=== PATIENT | female | born 1970 | race Caucasian/White ===

== ENCOUNTER 2016-03-29 10:37 | Day surgery (SDC) | payer OTHER ==
[~2016-03-29 10:37] MED LIST: LR 1,000 ML IV ONE; SILVER NITRATE APPLICATOR 1 APPL TP ONE
[2016-03-29] MEDS ORDERED: LIDOCAINE 1% 5 ML SDV ONE (11:20)
[2016-03-29 11:22] LABS: COLOR YELLOW; LEUKOCYTE ESTERASE,URINE NEGATIVE (NEGATIVE); NITRITE,URINE NEGATIVE (NEGATIVE)
[2016-03-29] MEDS ORDERED: PROPOFOL 200 MG/20 ML VIAL ONE ×2 (11:27)
[2016-03-29] MEDS ORDERED: fentaNYL 100 MCG/2 ML INJ ONE (11:28)
[2016-03-29] MEDS ORDERED: LIDOCAINE 2% 100 MG/5 ML SYR IVP ONE (11:30)
[2016-03-29] MEDS ORDERED: LIDOCAINE 1% 5 ML SDV ID PRN (11:53)
[2016-03-29] MEDS ORDERED: LR 1,000 ML IV ONE (11:53)
[2016-03-29] MEDS ORDERED: VASOPRESSIN 20 UNIT/ML VIAL ONE (12:05)
[2016-03-29] MEDS ORDERED: LIDOCAINE 1% 30 ML SDV ONE ×2 (12:06→12:07)
[2016-03-29] MEDS ORDERED: MIDAZOLAM 2 MG/2 ML VIAL ONE (12:16)
[2016-03-29] MEDS ORDERED: LIDO/EPI 1% **Not for Epidural 20 ML MDV ONE (12:41)
[2016-03-29] MEDS ORDERED: DEXAMETHASONE 4 MG/ML VIAL ONE (12:54)
[2016-03-29] MEDS ORDERED: ONDANSETRON 4 MG/2 ML VIAL ONE (12:54)
[2016-03-29] MEDS ORDERED: KETOROLAC 30 MG/1 ML SDV ONE (12:56)
--- NOTE | 2016-03-29 20:03 | GOP ---
[f rep st] OPERATIVE REPORT DATE OF OPERATION: 03/29/2016 SURGEON: Michelle Cummings MD STORAGE SPECIALIST: None. ANESTHESIA: LMA. PREOPERATIVE DIAGNOSIS: 1. Submucosal fibroid. 2. Pelvic pain. POSTOPERATIVE DIAGNOSIS: Endometrial polyp. PROCEDURE PERFORMED: 1. Hysteroscopy. 2. Polypectomy. FINDINGS: Endometrial polyps. No submucosal fibroid. SPECIMENS: Endometrial polyp. ESTIMATED BLOOD LOSS: Less than 10 mL. INDICATIONS: Marta is a 46-year-old female who was having pelvic pain, and shown to have a pelvic ultrasound which showed a potential submucosal fibroid abutting into the endometrium. Recommend proceeding with attempted hysteroscopic myomectomy to see if her pain would improve. DESCRIPTION OF PROCEDURE: The patient was taken to the operating room where she was prepped and draped in normal sterile fashion in the high dorsal lithotomy position. The patient emptied her bladder prior to the procedure. A surgical time-out was performed, verifying the patient's name, date of , planned procedure, and site. A bivalve speculum was placed in the patient's vagina. The anterior aspect of the cervix was grasped with a single-tooth tenaculum. The patient received a paracervical block of 1% lidocaine with epinephrine of 10 mL. Her cervix is dilated to 6.5 mm. The hysteroscope was placed into the uterine cavity. Uterine cavity visualization revealed a small endometrial polyp that was removed with a Truclear blade which was then removed. The hysteroscope was then removed. The patient did have normal fallopian tubal ostia and no evidence of submucosal fibroid. The bivalve speculum was removed. Hemostasis was obtained with silver nitrate. All counts were correct x2. The fluid deficit 110 mL. FLUID DEFICIT: 110 mL. COMPLICATIONS: None. DISPOSITION: Stable to the recovery room. /[id number]/MODL MTDD
== END 2016-03-29 15:15 | disposition home or self-care (01) ==
LOC: FSGY 10:37
PROVIDERS: ATTEND Obstetrics & Gynecology
PROC: 0UB98ZZ Excision of Uterus, Via Natural or Artificial Opening Endoscopic (ICD-10-PCS; principal; 2016-03-29 12:15)
DX: N92.0 Excessive and frequent menstruation with regular cycle (principal); N84.0 Polyp of corpus uteri
CPT/HCPCS: 58558; C1782; J1100; J1885; J2001; J2250; J2405; J2704; J3010

== ENCOUNTER → 2016-08-29 | Outpatient (CLI) | payer OTHER | LOC: FIMAGING 14:32 | PROVIDERS: ATTEND Obstetrics & Gynecology | DX: Z12.31 Encounter for screening mammogram for malignant neoplasm of breast (principal); Z80.3 Family history of malignant neoplasm of breast | CPT/HCPCS: G0202 ==

== ENCOUNTER 2016-09-10 06:00 | Observation (INO) | payer OTHER ==
--- NOTE | 2016-09-09 23:55 | GHP ---
[f rep st] PREOP HISTORY AND PHYSICAL DATE OF ADMISSION: 09/10/2016 CHIEF COMPLAINT: Right-sided pelvic pain and heavy menstrual bleeding. HISTORY OF PRESENT ILLNESS: The patient is a 46-year-old female who has been having persistent right-sided lower quadrant pain for the past several months and heavy vaginal bleeding when she is not taking control pills. The patient desires definitive surgical management, no longer wants to take oral contraception, and she is having significant pelvic pain despite being on the oral contraceptives and would like to proceed with a hysterectomy. The patient has had a pelvic ultrasound, which revealed a normally sized uterus. She has 2 fibroids approximately 1-2 cm in size and has bilateral ovarian cysts that were approximately 1.5 cm in size and likely complex hemorrhagic ovarian cysts. The patient's last Pap smear was in August of 2015 and it was normal with a negative HPV. PAST MEDICAL HISTORY: Negative. PAST SURGICAL HISTORY: Tonsillectomy, D and C, section, septoplasty, and knee surgery. FAMILY HISTORY: Significant for a father with diabetes and multiple sclerosis. Mother had alcoholism and had breast cancer, at age 65. REVIEW OF SYSTEMS: Significant for pelvic pain and heavy menstrual periods. The pelvic pain has not resolved with oral contraceptives. ALLERGIES: She has no known drug allergies. MEDICATIONS: She is currently taking a multivitamin daily, and Ortho Novum oral contraceptive. PHYSICAL EXAMINATION: VITAL SIGNS: Patient's blood pressure is 98/52, weight is 119, and pulse is 56. GENERAL: She is in no apparent distress. HEART: Regular rate and rhythm. LUNGS: Clear to auscultation. NECK: She has no thyromegaly. ABDOMEN: Soft, nontender. EXTREMITIES: She has no calf tenderness. ASSESSMENT AND PLAN: This is a 46-year-old female with chronic right lower quadrant pain that has not been receptive to oral contraceptives for pain management. Endometriosis is a possibility, given her bilateral small complex hemorrhagic cysts which could be bilateral endometriomas. The patient desires definitive surgical management. The risks of laparoscopic assisted vaginal hysterectomy were discussed with the patient including bleeding, blood transfusion, infection, damage to the bowel, bladder, uterus, fallopian tubes, ovaries, and blood vessels. We do recommend a bilateral salpingectomy to decrease her risk of ovarian cancer in the future, to which she agrees. The patient is also aware that she could continue to have pelvic pain after the surgery if her pelvic pain was caused by other organ such as her bowel, bladder , or the bowel. The patient understands all these risks and agrees to the procedure. /[id number]/MODL MTDD
[~2016-09-10 06:00] MED LIST changes: -LR 1,000 ML IV ONE; +LR 1,000 ML IV SCH; -SILVER NITRATE APPLICATOR 1 APPL TP ONE; +ceFAZolin 2 GM/DEXTROSE 100 ML IV ONE
[2016-09-10] MEDS ORDERED: LIDOCAINE 1% 2 ML INJ ONE (06:22)
[2016-09-10] MEDS ORDERED: MIDAZOLAM 2 MG/2 ML VIAL IVP ONE ×2 (06:51→10:09)
--- NOTE | 2016-09-10 06:51 | PDANEPAE ---
ANE History of Present Illness presents for laparoscopic hysterectomy and BSO ANE Past Medical History - Cardiovascular History Hx Hypertension: No Hx Arrhythmias: No Hx Chest Pain: No Hx Coronary Artery / Peripheral Vascular Disease: No Hx CHF / Valvular Disease: No Hx Palpitations: No - Pulmonary History Hx COPD: No Hx Asthma/Reactive Airway Disease: No Hx Recent Upper Respiratory Infection: No Hx Oxygen in Use at Home: No - Neurologic History Hx Cerebrovascular Accident: No Hx Seizures: No Hx Dementia: No - Endocrine History Hx Diabetes: No - Renal History Hx Renal Disorders: No - Liver History Hx Hepatic Disorders: No - Neurological & Psychiatric Hx Hx Neurological and Psychiatric Disorders: No - Cancer History Hx Cancer: No - Congenital Disorder History Hx Congenital Disorders: No - GI History Hx Gastrointestinal Disorders: No - Chronic Pain History Chronic Pain: No ANE Review of Systems Review of systems is: negative - Exercise capacity METS (RN): 4 METS ANE Patient History - Allergies Allergies/Adverse Reactions: No Known Allergies Allergy (Verified 03/28/16 16:27) - Home Medications Home medications: home medication list seen and reviewed Home Medications: Bcp Unknown Brand 1 tab PO DAILY 08/02/16 [Last Taken Unknown] Multivitamins [Multivitamin (*)] 1 each PO DAILY 08/02/16 [Last Taken Unknown] - NPO status NPO Since - Liquids (Date): 09/09/16 NPO Since - Liquids (Time): 21:00 NPO Since - Solids (Date): 09/09/16 NPO Since - Solids (Time): 21:00 - Anes Hx Anes Hx: no prior problems - Smoking Hx Smoking Status: Never smoked - Alcohol Use Alcohol Use: Occasionally - Family Anes Hx Family Hx Anesthesia Complications: NONE ANE Labs/Vital Signs - Vital Signs Blood Pressure: 114/75 Heart Rate: 56 Respiratory Rate: 16 O2 Sat (%): 99 Height: 167.64 cm Weight: 52.163 kg ANE Physical Exam - Airway Neck exam: FROM Mallampati Score: Class 1 Mouth exam: normal dental/mouth exam - Pulmonary Pulmonary: no respiratory distress - Cardiovascular Cardiovascular: no murmur, rub, or gallop - ASA Status ASA Status: II ANE Anesthesia Plan Anesthesia Plan: general endotracheal anesthesia
[2016-09-10] MEDS ORDERED: fentaNYL 100 MCG/2 ML INJ ONE ×4 (06:56→10:35)
[2016-09-10] MEDS ORDERED: PROPOFOL 200 MG/20 ML VIAL ONE ×2 (06:56→08:07)
[2016-09-10] MEDS ORDERED: BUPIVACAINE 0.25% 30 ML SDV ONE (07:01)
[2016-09-10] MEDS ORDERED: LIDOCAINE 1% 300 MG/30 ML SDV ONE (07:01)
[2016-09-10] MEDS ORDERED: VASOPRESSIN 20 UNIT/ML VIAL ONE (07:02)
[2016-09-10 07:09] LABS: % IMMATURE GRANULYOCYTES 0.3 % (0.0-1.1); ABSOLUTE IMMATURE GRANULOCYTES 0.01 10^3/uL (0.00-0.10); ADD DIFF? NO; ADD MORPH? NO; ADD SCAN? NO; ATYPICAL LYMPHOCYTE FLAG 0 (0-99); FRAGMENT RBC FLAG 0 (0-99); HEMATOCRIT 39.9 % (38.0-47.0); HEMOGLOBIN 13.1 g/dL (12.6-16.3); LEFT SHIFT FLG 0 (0-99); LIPEMIA HEMOLYSIS FLAG 80 (0-99); MEAN CELL HEMOGLOBIN 30.2 pg (27.9-34.1); MEAN CELL HEMOGLOBIN CONCENTR. 32.8 g/dL (32.4-36.7); MEAN CELL VOLUME 91.9 fL (81.5-99.8); MEAN PLATELET VOLUME 10.7 fL (8.7-11.7); PLATELET CLUMPS FLAG 10 (0-99); PLATELET COUNT 204 10^3/uL (150-400); RED BLOOD CELL COUNT 4.34 10^6/uL (4.18-5.33)
[2016-09-10] MEDS ORDERED: LIDOCAINE 1% 2 ML INJ ID PRN (07:09)
[2016-09-10] MEDS ORDERED: HYDROCODONE/APAP 5/325 TAB PO PRN (07:09)
[2016-09-10] MEDS ORDERED: ONDANSETRON 4 MG/2 ML VIAL IVP PRN ×2 (07:09→09:55)
[2016-09-10] MEDS ORDERED: LR 1,000 ML IV ONE (07:09)
--- NOTE | 2016-09-10 07:09 | PDHPUP ---
History & Physical Update H&P update statement: This history and physical update is based on an assessment of the patient which was completed after admission or registration (within 24 hours), but prior to the surgery/procedure.
[2016-09-10] MEDS ORDERED: LR 1,000 ML IV SCH (07:30)
[2016-09-10] MEDS ORDERED: ROCURONIUM 100 MG/10 ML VIAL ONE (08:08)
[2016-09-10] MEDS ORDERED: NALOXONE HCL 0.4 MG/ML INJ IVP PRN (09:55)
[2016-09-10] MEDS ORDERED: LR 500 ML IV PRN (09:55)
[2016-09-10] MEDS ORDERED: ALBUTEROL 3 ML DEYVIAL IH PRN (09:55)
[2016-09-10] MEDS ORDERED: PROMETHAZINE HCL 25 MG/ML INJ IVP PRN (09:55)
[2016-09-10] MEDS ORDERED: ACETAMINOPHEN 500 MG TAB PO PRN (09:55)
--- NOTE | 2016-09-10 09:55 | POSTANESTH ---
Post Anesthetic Evaluation Cardiovascular Status: Normal, Stable Respiratory Status: Normal, Stable Level of Consciousness/Mental Status: Can Participate in Eval Pain Control: Adequate, Prn Tx Ordered Nausea/Vomiting Control: Adequate, Prn Tx Ordered Complications Possibly Related to Anesthesia: None Noted
[2016-09-10] MEDS ORDERED: HYDROmorphONE/DILAUDID 1 MG/ML SYR ONE ×2 (10:05→10:35)
[2016-09-10] MEDS: fentaNYL 100 MCG/2 ML INJ IVP PRN ×4 (10:06→11:06)
[2016-09-10] MEDS: HYDROmorphONE/DILAUDID 1 MG/ML SYR IVP PRN ×3 (10:07→10:34)
[2016-09-10] MEDS ORDERED: METHYLENE BLUE 0.5% 50 MG/10 ML AMP ONE (13:37)
--- NOTE | 2016-09-10 14:37 | GOP ---
[f rep st] OPERATIVE REPORT DATE OF OPERATION: 09/10/2016 SURGEON: Michelle Cummings MD PARKING ENFORCEMENT OFFICER: Amita Rodriguez MD ANESTHESIA: General. PREOPERATIVE DIAGNOSIS: Chronic pelvic pain and menorrhagia. POSTOPERATIVE DIAGNOSIS: Chronic pelvic pain and menorrhagia. PROCEDURE PERFORMED: Laparoscopic-assisted vaginal hysterectomy, bilateral salpingectomy, and cystoscopy. FINDINGS: A 7 week-sized uterus. Normal fallopian tubes. 2 cm simple cyst on the left ovary. Normal right ovary. No evidence of endometriosis. Adhesion of the omentum to the prior section to the abdominal wall. SPECIMENS: Uterus, cervix, and fallopian tubes. ESTIMATED BLOOD LOSS: 200 mL. INDICATIONS: The patient is a 46-year-old female who was having chronic pelvic pain (despite medical management of oral contraceptives) and menorrhagia, and desires surgical management. DESCRIPTION OF PROCEDURE: The patient was taken the operating room where she was prepped and draped in normal sterile fashion in the low dorsal lithotomy position. A surgical time-out was performed, verifying the patient's name, date of , planned procedure, and site. A bivalve speculum was placed in the patient's vagina. The anterior aspect was grasped with a single-tooth tenaculum, and the uterine manipulator was placed into the uterine canal. The bivalve speculum was removed. Gloves were changed. The umbilical skin was injected with 0.25% Marcaine. A 10 mm incision was made with the 11 blade scalpel. Subcutaneous tissue was dissected down to the fascia. The fascia was tented up with the Jorge clamps. The fascia was incised with a 15 blade scalpel. The fascia was tagged with 0 Vicryl, and the peritoneum was entered employing the Olman, and port was placed into the patient's pelvic cavity. The patient's abdomen was insufflated. Approximately 5 cm right from the patient's umbilicus and 2 cm caudad, the skin was transilluminated, injected with 0.25% Marcaine, and a 5 mm incision was made with an 11 blade scalpel. Trocar was placed into the pelvic cavity directly. The same procedure was performed on the left side. Visualization of the pelvic cavity revealed an omental adhesion to the anterior abdominal wall that was taken down with cautery. She had normal fallopian tubes and normal sized uterus. She had a 2 cm simple-appearing cyst on her left ovary (that was drained and cauterized) and a normal right ovary. The left uterine ovarian ligament was grasped. The mesosalpinx was incised. The uterine ovarian ligament was cauterized and incised. The round ligament was cauterized and incised. The anterior leaf of the broad ligament was cauterized and incised. The same procedure was performed following down on the patient's right. Bladder flap was created with the Endoshears, and the uterine arteries were bilaterally cauterized and cut. Vaginal portion took place. The patient was placed in high lithotomy position. A short weighted speculum was placed in the patient's posterior cul-de-sac. The cervix was grasped with a Dao tenacula x2. The cervix was circumferentially injected with dilute vasopressin. A circumferential incision was made with the 10 blade scalpel. The anterior and posterior aspects of the vagina were dissected off bluntly from the cervix. The uterosacral ligaments were bilaterally clamped, cut, and suture ligated. The posterior peritoneum was identified and entered sharply. A long weighted speculum was placed in the patient's posterior cul-de-sac. The bladder was dissected off bluntly from the anterior cervix, and the anterior peritoneum was identified and entered sharply. The bladder was reflected away from the uterus with the Delano retractor. The remaining cardinal ligaments were bilaterally clamped, cut, and suture ligated. The pelvis was irrigated. The posterior peritoneum was reapproximated to the vaginal cuff. The vaginal cuff was then closed. The patient received methylene blue for evaluation of ureteral patency. She had cystoscopy which revealed normal bladder and bilateral ureteral jets. The bladder was drained. Gown and gloves were changed. The abdomen was insufflated with visualization of the pelvis. The vaginal cuff was irrigated and noted to be hemostatic, as well as the IP ligaments were hemostatic. All counts were correct x2. COMPLICATIONS: None. OUTCOME: Stable to the recovery room. /[id number]/MODL MTDD
[2016-09-10] MEDS: KETOROLAC 30 MG/1 ML SDV IVP SCH ×2 (16:03→22:33)
[2016-09-10 23:19] VITALS: RESP 16
[2016-09-11] MEDS: KETOROLAC 30 MG/1 ML SDV IVP SCH ×2 (04:27→15:41)
[2016-09-11 06:18] LABS: % IMMATURE GRANULYOCYTES 0.3 % (0.0-1.1); ABSOLUTE IMMATURE GRANULOCYTES 0.02 10^3/uL (0.00-0.10); ADD DIFF? NO; ADD MORPH? NO; ADD SCAN? NO; ATYPICAL LYMPHOCYTE FLAG 0 (0-99); FRAGMENT RBC FLAG 10 (0-99); HEMATOCRIT 35.8 % (38.0-47.0); HEMOGLOBIN 11.9 g/dL (12.6-16.3); LEFT SHIFT FLG 0 (0-99); LIPEMIA HEMOLYSIS FLAG 80 (0-99); MEAN CELL HEMOGLOBIN 30.4 pg (27.9-34.1); MEAN CELL HEMOGLOBIN CONCENTR. 33.2 g/dL (32.4-36.7); MEAN CELL VOLUME 91.6 fL (81.5-99.8); MEAN PLATELET VOLUME 10.7 fL (8.7-11.7); PLATELET CLUMPS FLAG 0 (0-99); PLATELET COUNT 190 10^3/uL (150-400); RED BLOOD CELL COUNT 3.91 10^6/uL (4.18-5.33); RED CELL DISTRIBUTION WIDTH 12.9 % (11.5-15.2)
[2016-09-11] MEDS ORDERED: IBUPROFEN 600 MG TAB PO SCH ×2 (07:10→18:00)
--- NOTE | 2016-09-11 08:04 | POSTOPPROG ---
Post Op Note Date of Operation: 09/11/16 Surgeon: Michelle Hyde Fiberglass Finisher: Michael Anesthesia: GET(General Endotracheal) Pre-op Diagnosis: chronic pelvic pain Post-op Diagnosis: same Indication: chronic pelvic pain Procedure: lavh/lap salpingectomy Findings: nml uterus, 2 cm simple left ovarian cyst, omental adhesion Inf/Abcess present in the surg proc area at time of surgery?: No Depth: Deep Incisional (Fascial) EBL: 50-100 Complications: none Specimen(s): uterus, fallopian tubes
--- NOTE | 2016-09-11 08:05 | SOAPPROG ---
SOAP Progress Note Assessment/Plan: Assessment: 46 yo female s/p lavh/bilateral salpingectomy for menorrhagia, chronic pelvic pain, doing well. Plan: 09/11/16 08:04 Routine care, home today after voiding. Subjective: 46 yo female s/p lavh/bilateral salpingectomy for menorrhagia, chronic pelvic pain, doing well. Objective: Vital Signs Temp Pulse Resp BP Pulse Ox 37.4 C 70 16 109/64 95 09/11/16 04:30 09/11/16 04:30 09/11/16 04:30 09/11/16 04:30 09/11/16 04:30 Laboratory Results 09/11/16 06:00 09/10/16 09/11/16 09/12/16 05:59 05:59 05:59 Intake Total 1400 Output Total 850 Balance 550 Physical Exam - Physical Exam General Appearance: no apparent distress Respiratory: lungs clear Cardiac/Chest: regular rate, rhythm Abdomen: non-tender Skin: warm/dry Extremities: non-tender Neuro/Psych: oriented x 3 ICD10 Worksheet Patient Problems: Problems Problem Status Onset S/P hysterectomy Acute
[2016-09-11] MEDS ORDERED: KETOROLAC 30 MG/1 ML SDV IVP ONE (10:15)
[2016-09-11 15:30] VITALS: BP 108/67; PULSE 72; TEMP 99.1; O2SAT 94
== END 2016-09-11 14:30 | disposition home or self-care (01) ==
LOC: F3N 06:00 → PREINTOOBSV 10:31 → PREOBSVTOIN 10:42 → FOB 11:29
PROVIDERS: ADMIT Obstetrics & Gynecology; ATTEND Obstetrics & Gynecology
DX: D25.0 Submucous leiomyoma of uterus (principal); N83.202 Unspecified ovarian cyst, left side; N92.0 Excessive and frequent menstruation with regular cycle; R10.2 Pelvic and perineal pain; Z80.3 Family history of malignant neoplasm of breast
CPT/HCPCS: 58552; G0378; J0690; J1170; J1885; J2250; J2704; J3010; Q9968

== ENCOUNTER → 2017-10-06 | Outpatient (CLI) | payer OTHER | LOC: FIMAGING 15:47 | PROVIDERS: ATTEND Obstetrics & Gynecology | DX: Z12.31 Encounter for screening mammogram for malignant neoplasm of breast (principal); Z80.3 Family history of malignant neoplasm of breast ==

== ENCOUNTER → 2018-04-24 | Outpatient (CLI) | payer OTHER | LOC: FIMAGING 15:05 | PROVIDERS: ATTEND Obstetrics & Gynecology | DX: N63.10 Unspecified lump in the right breast, unspecified quadrant (principal); N64.4 Mastodynia ==